=== PATIENT | male | born 1965 | race Caucasian/White ===

== ENCOUNTER → 2020-09-25 | Day surgery (SDC) | payer OTHER | END | disposition home or self-care (01) | LOC: MSO 09:57 | DX: K21.9 Gastro-esophageal reflux disease without esophagitis (principal); K44.9 Diaphragmatic hernia without obstruction or gangrene; E66.9 Obesity, unspecified; F41.9 Anxiety disorder, unspecified; F32.9 Major depressive disorder, single episode, unspecified; Z79.899 Other long term (current) drug therapy; Z68.39 Body mass index [BMI] 39.0-39.9, adult | CPT/HCPCS: 00731; J2704; J7120 ==

== ENCOUNTER → 2020-10-16 | Outpatient (CLI) | payer OTHER ==
[2020-10-16 16:25] LABS: POTASSIUM 4.5 mmol/L (3.5-5.1)
[2020-10-16 16:26] LABS: CALCIUM 9.2 mg/dL (8.3-10.5)
[2020-10-16 16:27] LABS: TOTAL PROTEIN 7.8 g/dL (6.4-8.3)
[2020-10-16 16:29] LABS: TOTAL BILIRUBIN 0.4 mg/dL (0.2-1.2)
[2020-10-16 16:50] LABS: URINE APPEARANCE HAZY; URINE COLOR YELLOW
[2020-10-16 16:51] LABS: URINE BILIRUBIN NEGATIVE (NEGATIVE); URINE BLOOD NEGATIVE (NEGATIVE); URINE GLUCOSE NEGATIVE (NEGATIVE); URINE KETONE NEGATIVE (NEGATIVE); URINE LEUKOCYTE ESTERASE 1+ (NEGATIVE); URINE MUCUS PRESENT (NOT PRESENT); URINE NITRATE NEGATIVE (NEGATIVE); URINE PROTEIN(semi-quant) TRACE mg/dL (NEGATIVE); URINE UROBILINOGEN NORMAL (NORMAL)
== END ==
LOC: LAB 16:00
PROVIDERS: Family Medicine
DX: N39.41 Urge incontinence (principal)

== ENCOUNTER → 2020-10-23 | Outpatient (CLI) | payer OTHER | LOC: LAB 09:42 | DX: N39.0 Urinary tract infection, site not specified (principal) ==

== ENCOUNTER → 2020-11-03 | Outpatient (CLI) | payer OTHER ==
[2020-11-03 10:22] LABS: URINE APPEARANCE CLEAR; URINE BILIRUBIN NEGATIVE (NEGATIVE); URINE BLOOD NEGATIVE (NEGATIVE); URINE COLOR YELLOW; URINE GLUCOSE NEGATIVE (NEGATIVE); URINE KETONE NEGATIVE (NEGATIVE); URINE NITRATE NEGATIVE (NEGATIVE); URINE PROTEIN(semi-quant) TRACE mg/dL (NEGATIVE); URINE UROBILINOGEN NORMAL (NORMAL)
[2020-11-03 10:23] LABS: URINE LEUKOCYTE ESTERASE 2+ (NEGATIVE); URINE MUCUS PRESENT (NOT PRESENT); URINE WBC >50 /hpf (0-3)
== END ==
LOC: LAB 08:59
PROVIDERS: Family Medicine
DX: N41.0 Acute prostatitis (principal); R82.79 Other abnormal findings on microbiological examination of urine

== ENCOUNTER → 2021-12-18 | Outpatient (CLI) | payer BC ==
[2021-12-18 08:29] LABS: HEMOGLOBIN 13.6 g/dL (13.5-18.0); MEAN PLATELET VOLUME 11.1 fl (7.4-10.4); RED BLOOD COUNT 4.99 M/mm3 (4.20-5.60); RED CELL DISTRIBUTION WIDTH 12.5 % (11.5-14.5); WHITE BLOOD COUNT 6.4 K/mm3 (4.8-10.8)
[2021-12-18 08:34] LABS: POTASSIUM 3.9 mmol/L (3.5-5.1)
[2021-12-18 08:35] LABS: ALBUMIN 4.1 g/dL (3.5-5.0)
[2021-12-18 08:36] LABS: CALCIUM 9.5 mg/dL (8.3-10.5)
[2021-12-18 08:37] LABS: TOTAL PROTEIN 7.5 g/dL (6.4-8.3)
[2021-12-18 08:39] LABS: TOTAL BILIRUBIN 0.8 mg/dL (0.2-1.2)
== END ==
LOC: LAB 08:07
PROVIDERS: Family Medicine
DX: Z12.5 Encounter for screening for malignant neoplasm of prostate (principal); Z13.1 Encounter for screening for diabetes mellitus; K21.9 Gastro-esophageal reflux disease without esophagitis

== ENCOUNTER → 2022-01-21 | Day surgery (SDC) | payer BC | LOC: MSO 09:33 | DX: Z12.11 Encounter for screening for malignant neoplasm of colon (principal); K63.5 Polyp of colon; K57.30 Diverticulosis of large intestine without perforation or abscess without bleeding | CPT/HCPCS: 00811; J2704; J7120 ==